=== PATIENT | female | born 1960 | race Caucasian/White ===

== ENCOUNTER 2022-09-22 07:51 | Emergency (ER) | payer BC ==
[~2022-09-22] VITALS: Ht 165.1 cm; Wt 56.8 kg
[2022-09-22] MEDS ORDERED: ipratropium/albuterol 3ml nebule NEB ONE (08:50)
[2022-09-22 09:20] VITALS: BP 144/68
[2022-09-22] MEDS ORDERED: PRED20TA PO (09:28)
[2022-09-22] MEDS ORDERED: AMOX-117 PO (09:28)
[2022-09-22] MEDS ORDERED: BUDE180A INH (09:28)
== END 2022-09-22 10:01 | disposition home or self-care (01) ==
LOC: ER 07:51
DX: J40 Bronchitis, not specified as acute or chronic (principal); I10 Essential (primary) hypertension; Z87.891 Personal history of nicotine dependence
CPT/HCPCS: 71045; 94640; 94760; 99283

== ENCOUNTER 2023-11-17 09:04 | Emergency (ER) | payer MEDICARE, OTHER ==
[~2023-11-17] VITALS: Ht 165.1 cm; Wt 57.0 kg
[~2023-11-17 09:04] MED LIST: BUDE180A INH
[2023-11-17] MEDS ORDERED: CEFD300C3 PO (09:29)
[2023-11-17 09:36] VITALS: BP 138/87; PULSE 75; RESP 16; TEMP 98; O2SAT 97
== END 2023-11-17 09:40 | disposition home or self-care (01) ==
LOC: ER 09:04
DX: J20.9 Acute bronchitis, unspecified (principal); I10 Essential (primary) hypertension; J45.909 Unspecified asthma, uncomplicated; Z88.8 Allergy status to other drugs, medicaments and biological substances
CPT/HCPCS: 99283